=== PATIENT | male | born 1960 | race Caucasian/White ===

== ENCOUNTER 2019-01-18 20:38 | Emergency (ER) | payer OTHER ==
[~2019-01-18] VITALS: Ht 182.9 cm; Wt 136.1 kg
[2019-01-18] MEDS ORDERED: MILK OF MA400 MG/51 ORAL (21:02)
[2019-01-18] MEDS ORDERED: ATORVASTATIN CA40 MG ORAL (21:02)
[2019-01-18] MEDS ORDERED: FLUCONAZOLE200 MG ORAL (21:02)
[2019-01-18] MEDS ORDERED: AMLODIPINE BESYL5 MG ORAL (21:02)
[2019-01-18] MEDS ORDERED: CYMBALTA30 MG ORAL (21:02)
[2019-01-18] MEDS ORDERED: ASPIRIN81 MG ORAL (21:02)
[2019-01-18] MEDS ORDERED: LANTUS SOL100 UNIT/1 SUBQ (21:02)
[2019-01-18] MEDS ORDERED: DOCUSATE SODIU100 MG ORAL (21:02)
[2019-01-18] MEDS ORDERED: FOLIC ACID1 MG ORAL (21:02)
[2019-01-18] MEDS ORDERED: FAMOTIDINE40 MG ORAL (21:02)
[2019-01-18] MEDS ORDERED: FERROUS SULFAT325 MG ORAL (21:02)
[2019-01-18] MEDS ORDERED: MULTIVITAMINS1 EAC8 ORAL (21:04)
[2019-01-18] MEDS ORDERED: OXYCODONE HCL10 MG ORAL (21:04)
[2019-01-18] MEDS ORDERED: NOVOLOG100 UNIT/4 SQ (21:04)
[2019-01-18] MEDS ORDERED: VITAMIN B-1100 MG ORAL (21:07)
[2019-01-18] MEDS ORDERED: POLYETHYLENE GL17 GM ORAL (21:07)
[2019-01-18] MEDS ORDERED: VITAMIN C500 M1 ORAL (21:07)
[2019-01-18] MEDS ORDERED: SENNA8.6 M2 PO (21:07)
[2019-01-18] MEDS ORDERED: TYLENOL325 MG ORAL (21:07)
[2019-01-18] MEDS ORDERED: ROBAXIN500 MG PO (21:07)
[2019-01-18 21:22] VITALS: BP 148/83
--- NOTE | 2019-01-18 21:22 | NUR ---
ED Nurse Note: PT BIBA FROM [facility] C/C RIGHT HIP PAIN X 1 WK, PER EMS REPORT, THERE IS BLOOD AND PUS DRAINAGE FOR 1-2 DAYS. DENIES FEVER. WILL CONT MONIOR. HX LEFT MID THIGH AMPUTATION RIGHT HALF FOOT AMPUTATION
--- NOTE | 2019-01-18 21:26 | Emergency Room Report ---
History of Present Illness General Chief Complaint: Pain Source: Patient Present Illness HPI This is a 58-year-old male with a history of diabetes. He presents with chief complaint of right hip pain. 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 This required surgery. Subsequently he dislocated a couple times more. He required more surgery. He also had a recent transmetatarsal foot amputation because of infection. He presents with right hip pain. Also with drainage. Drainage in the last for 5 days. Increasing pain. Pain is 10 out of 10. Worse with movement. No nausea no vomiting. No fever chills. Similar symptom in the past. Allergies: Coded Allergies: No Known Allergies (Unverified , 01/18/19) Patient History Past Medical History: see triage record, old chart reviewed Past Surgical History: other Pertinent Family History: none Social History: Denies: smoking Immunizations: other Reviewed Nursing Documentation: PMH: Agreed; PSxH: Agreed Nursing Documentation-PMH Past Medical History: No History, Except For Hx Diabetes: Yes - DM 2 Review of Systems Eye: Denies: eye pain, blurred vision ENT: Denies: ear pain, nose congestion, throat swelling Respiratory: Denies: cough, shortness of breath Cardiovascular: Denies: chest pain, palpitations Gastrointestinal: Denies: abdominal pain, diarrhea, nausea, vomiting Musculoskeletal: Reports: joint pain; Denies: back pain Skin: Denies: rash Neurological: Denies: headache, numbness Endocrine: Denies: increased thirst, increased urine Hematologic/Lymphatic: Denies: easy bruising All Other Systems: negative except mentioned in HPI Physical Exam Vital Signs Date Time Temp Pulse Resp B/P (MAP) Pulse Ox O2 Delivery O2 Flow Rate FiO2 01/18/19 20:32 108 18 152/77 (102) 96 Room Air Vitals with tachycardia Sp02 EP Interpretation: reviewed, normal General Appearance: well appearing, no apparent distress, alert Head: normocephalic, atraumatic Eyes: bilateral eye PERRL, bilateral eye EOMI ENT: hearing grossly normal, normal pharynx Neck: full range of motion, supple, no meningismus Respiratory: chest non-tender, lungs clear, normal breath sounds Cardiovascular #1: regular rate, rhythm, no murmur Gastrointestinal: normal bowel sounds, non tender, no mass, no organomegaly, no bruit, non-distended Musculoskeletal: back normal, other - Rt hip: There is erythema at the surgical site. There is serous drainage. Slightly warm to the touch. Tender to palpation. Right foot with trans-metatarsal amputation. Left leg with AKA Psychiatric: mood/affect normal Medical Decision Making Diagnostic Impression: Primary Impression: Right hip pain Additional Impression: Postoperative wound cellulitis ER Course Patient presents with right hip pain and some wound drainage. Drainage is serosanguineous and has some erythema along the mann. This may be an infection. Culture done. I put patient in for admission but he said he does not want to stay. [facility] He wants to follow-up at [facility]. He is competent to make that decision. There is no dislocation. He required large doses of pain medication. On [employer] system he has previous opioids prescriptions from different doctors. Other X-Ray Diagnostic Results Other X-Ray Diagnostic Results : X-Ray ordered: Right hip x-rays # of Views/Limited Vs Complete: 3 View Indication: Pain EP Interpretation: Yes Interpretation: no dislocation, no soft tissue swelling, no fractures, other - Post surgical changes Impression: Other - post surgical changes Electronically Signed by: Willie Velez Last Vital Signs Date Time Temp Pulse Resp B/P (MAP) Pulse Ox O2 Delivery O2 Flow Rate FiO2 01/18/19 20:32 108 18 152/77 (102) 96 Room Air Status: improved Disposition: XFER SNF Condition: Stable Scripts Amoxicillin/Potassium Clav 875-125* (AUGMENTIN 875-125 TABLET*) 1 Each Tablet 1 TAB ORAL TWICE A DAY, #14 TAB Prov: Ernie Berman MD 01/19/19 Additional Instructions: Followup with your DrSera in 7 days. Return if symptoms worsen. Ernie Berman MD Jan 18, 2019 21:26
[2019-01-18] MEDS ORDERED: Piperacillin/Tazobactam 3.375 GM in NS 110 ML IVPB ONE (21:30)
[2019-01-18] MEDS ORDERED: Vancomycin 1 GM in NS 275 ML IVPB ONE (21:30)
[2019-01-18] MEDS ORDERED: HYDROmorphone 1mg/ml Carpuject IVP ONE (21:30)
[2019-01-18 21:54] LABS: BASOPHILS % (AUTO) 0.8 % (0.0-2.0); EOSINOPHILS % (AUTO) 3.2 % (0.0-3.0); HEMATOCRIT 32.5 % (42.0-52.0); HEMOGLOBIN 10.6 G/DL (14.2-18.0); LYMPHOCYTES % (AUTO) 22.7 % (20.0-45.0); MEAN CORPUSCULAR VOLUME 79 FL (80-99); MONOCYTES % (AUTO) 8.1 % (1.0-10.0); NEUTROPHILS % (AUTO) 65.3 % (45.0-75.0); PLATELET COUNT 185 K/UL (150-450); RED BLOOD COUNT 4.09 M/UL (4.70-6.10); RED CELL DISTRIBUTION WIDTH 15.5 % (11.6-14.8); WHITE BLOOD COUNT 5.9 K/UL (4.8-10.8)
[2019-01-18 21:58] LABS: ANION GAP 9 mmol/L (5-15); BLOOD UREA NITROGEN 21 mg/dL (7-18); CARBON DIOXIDE 27 MMOL/L (21-32); CHLORIDE 102 MMOL/L (98-107); CREATININE 1.2 MG/DL (0.55-1.30); POTASSIUM 4.3 MMOL/L (3.5-5.1); SODIUM 138 MMOL/L (136-145)
[2019-01-18 22:00] LABS: INR 0.9 (0.9-1.1)
[2019-01-18] MEDS ORDERED: Morphine Sulfate 10mg/ml Inj IVP ONE (22:45)
--- NOTE | 2019-01-18 23:53 | NUR ---
ED Nurse Note: spoke with PRIETO from [facility]. pt going back to [facility].
--- NOTE | 2019-01-19 00:44 | NUR ---
ED Nurse Note: PT GIVEN TOWEL AND WARM WATER W/ SOAP FOR CLEANING.
[2019-01-19] MEDS ORDERED: AUGMENTIN 875-1 EAC1 ORAL (01:06)
--- NOTE | 2019-01-19 01:09 | NUR ---
ED Nurse Note: AMBULANCE AT THE BEDSIDE, REPORT GIVEN TO EMS [facility]. ALL BELONGINGS ENDORSED TO EMS AND PT. VSS. IV D/C AND ID BAND REMOVED, SUMMARY OF CARE GIVEN TO EMS.
[2019-01-19 01:15] VITALS: BP 128/56
--- NOTE | 2019-01-19 10:58 | Diagnostic Imaging Report ---
Indications: Right hip pain Findings: Two views of the right hip were obtained. Examination shows evidence of a revised right total hip arthroplasty. Skin mann are still present. There is a transverse periprosthetic fracture about the femoral component of the prosthesis involving the proximal femoral shaft and cement. The bones are osteopenic. IMPRESSION: Periprosthetic fracture involving the femoral component of the prosthesis. Findings conveyed to the emergency room Department 10:50 a.m., 01/19/2019
== END 2019-01-19 01:15 ==
LOC: EDBD 20:38 → EMR 22:00 → CANBEDREQ 23:53 → EMR 01-19 01:15
DX: M25.551 Pain in right hip (principal); T81.49XA Infection following a procedure, other surgical site, initial encounter; L03.115 Cellulitis of right lower limb; E11.9 Type 2 diabetes mellitus without complications; Z96.641 Presence of right artificial hip joint; Z89.612 Acquired absence of left leg above knee
CPT/HCPCS: 36415; 73502; 80048; 85025; 85610; 85730; 87070; 87181; 87205; 96365; 96367; 96375; 99284; J1170; J2270; J2543; J3370; J7050